=== PATIENT | male | born 1955 | race Caucasian/White ===

== ENCOUNTER → 2020-05-21 08:18 | Outpatient (BNVA) | payer MEDICARE, OTHER, SELFPAY | PROVIDERS: Family Provider Family Medicine; Referring Provider Specialist; Visit Provider Specialist | DX: M25.511 Pain in right shoulder (principal); M19.011 Primary osteoarthritis, right shoulder | CPT/HCPCS: 73030 ==

== ENCOUNTER 2020-06-01 16:20 | Outpatient (CLI) | payer MEDICARE, OTHER, SELFPAY ==
--- NOTE | 2020-06-01 16:45 | MR_ITS ---
WS: [id number] MRI RIGHT SHOULDER HISTORY: M25.511 Pain in right shoulder COMPARISON: 05/21/2020 TECHNIQUE: Multiplanar sequences of the shoulder joint are submitted. Marked soft tissue and bony hypertrophy of the AC joint. There is capsular thickening and fluid along the AC ligament. Significant soft tissue and osseous encroachment upon the supraspinatus muscle and tendon. Fluid in the subacromial and subdeltoid bursa. No os acromion. There is a large insertion site tear with of at least 2.1 cm involving the supraspinatus and infraspi natus tendons. Fluid extends along the infraspinatus tendon and there is marked fraying along the art icular and bursal surfaces. There is an additional high-grade tear involving the articular and bursal surfaces of the infraspinatus tendon 1.8 cm proximal to its insertion site. Tendinopathy and thinnin g of the distal supraspinatus tendon appears slightly retracted by approximately 2 to 3 cm. There is fluid within the tendon sheath of the subscapularis. The tendon does not appear significantly torn or retracted. Mild atrophy of the supraspinatus muscle without edema. There is also mild atrophy of the infraspinatus muscle without edema. Biceps tendon is abnormal. There is a large amount of fluid in the extracapsular portion of the bicep s tendon. At the bicipital groove the biceps tendon is smaller caliber and suspect probably a split t ear due to the changing caliber and the increased signal. Coracohumeral interval is normal. There is an abnormal contour of the glenoid and the posterior labrum. Avulsion of the posterior labrum with sl ight rounding of the glenoid contour. There may be avulsion fracture from the glenoid due to the rou nded contour. The entire labrum contains increased signal and is abnormal. Mild narrowing of the glenohumeral joint with loss of cartilage. Humeral head osteophytes. MR/MR shoulder RT wo con* [id number] IMPRESSION: 1. Large insertion site tear involving the supraspinatus and infraspinatus ten dons with marked fraying along the bursal and articular surfaces. Additional ne ar complete tear in the more proximal infraspinatus tendon. Mild atrophy withou t edema infraspinatus and supraspinatus muscles. 2. Abnormal labrum. Posterior labrum is avulsed with an abnormal contour of th e glenoid. Suggest remote injury with avulsion of the labrum and osseous avulsi on. 3. 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 4. Abnormal biceps tendon. Suspect split tear with biceps tenosynovitis. 5. Advanced degenerative changes at the humeral head and glenohumeral joints f rom osteoarthritis and loss of cartilage. 6. Large amount of fluid along the subscapularis tendon sheath. Subscapularis tendinopathy but no definite tear identified. Suspect there may be a tear dista lly near the biceps tendon insertion.
== END 2020-06-01 16:21 | disposition home or self-care (01) ==
LOC: RADSHAW 16:25
PROVIDERS: PCP Family Medicine; Visit Provider Specialist
DX: M25.511 Pain in right shoulder (principal); M13.811 Other specified arthritis, right shoulder
CPT/HCPCS: 73221

== ENCOUNTER 2020-09-21 06:00 | Outpatient (RCR) | payer MEDICARE, OTHER, SELFPAY | END 2020-10-01 23:59 | disposition home or self-care (01) | LOC: SPT 06:00 | PROVIDERS: PCP Family Medicine; Referring Provider Physician Assistant; Visit Provider Physician Assistant | DX: Z47.89 Encounter for other orthopedic aftercare (principal) | CPT/HCPCS: 97110; 97140; 97161 ==

== ENCOUNTER 2020-10-02 06:00 | Outpatient (RCR) | payer MEDICARE, OTHER, SELFPAY | END 2020-11-01 23:59 | disposition home or self-care (01) | LOC: SPT 06:00 | PROVIDERS: PCP Family Medicine; Referring Provider Physician Assistant; Visit Provider Physician Assistant | DX: Z47.89 Encounter for other orthopedic aftercare (principal) | CPT/HCPCS: 97110; 97140; G0283 ==

== ENCOUNTER 2020-11-02 06:00 | Outpatient (RCR) | payer MEDICARE, OTHER, SELFPAY | END 2020-11-29 23:59 | disposition home or self-care (01) | LOC: SPT 06:00 | PROVIDERS: PCP Family Medicine; Referring Provider Physician Assistant; Visit Provider Physician Assistant | DX: Z47.89 Encounter for other orthopedic aftercare (principal) | CPT/HCPCS: 97110 ==

== ENCOUNTER 2020-11-30 06:00 | Outpatient (RCR) | payer MEDICARE, OTHER, SELFPAY | END 2020-12-30 23:59 | disposition home or self-care (01) | LOC: SPT 06:00 | PROVIDERS: PCP Family Medicine; Referring Provider Physician Assistant; Visit Provider Physician Assistant | DX: Z47.89 Encounter for other orthopedic aftercare (principal) | CPT/HCPCS: 97110 ==

== ENCOUNTER 2020-12-31 06:00 | Outpatient (RCR) | payer MEDICARE, OTHER, SELFPAY | END 2021-01-29 23:59 | disposition home or self-care (01) | LOC: SPT 06:00 | PROVIDERS: PCP Family Medicine; Referring Provider Physician Assistant; Visit Provider Physician Assistant | DX: Z98.890 Other specified postprocedural states (principal) | CPT/HCPCS: 97110 ==

== ENCOUNTER → 2022-07-19 08:01 | Outpatient (BNVA) | payer MEDICARE, SELFPAY | PROVIDERS: PCP Family Medicine; Visit Provider Family Medicine | DX: Z00.00 Encounter for general adult medical examination without abnormal findings (principal); Z13.6 Encounter for screening for cardiovascular disorders; N52.9 Male erectile dysfunction, unspecified | CPT/HCPCS: 80053; 80061 ==

== ENCOUNTER → 2023-07-20 08:26 | Outpatient (BNVA) | payer MEDICARE, SELFPAY | PROVIDERS: PCP Family Medicine; Visit Provider Family Medicine | DX: Z00.00 Encounter for general adult medical examination without abnormal findings (principal); Z13.6 Encounter for screening for cardiovascular disorders | CPT/HCPCS: 80053; 80061 ==

== ENCOUNTER → 2024-07-22 08:22 | Outpatient (BNVA) | payer MEDICARE, SELFPAY | PROVIDERS: PCP Family Medicine; Visit Provider Family Medicine | DX: Z12.5 Encounter for screening for malignant neoplasm of prostate (principal); Z00.00 Encounter for general adult medical examination without abnormal findings; Z13.6 Encounter for screening for cardiovascular disorders | CPT/HCPCS: 80053; 80061; G0103 ==

== ENCOUNTER → 2024-12-02 09:20 | Outpatient (BNVA) | payer MEDICARE, SELFPAY | PROVIDERS: PCP Family Medicine; Visit Provider Nurse Practitioner | DX: M25.562 Pain in left knee (principal); M17.12 Unilateral primary osteoarthritis, left knee; M70.42 Prepatellar bursitis, left knee | CPT/HCPCS: 73560; 73565 ==

== ENCOUNTER 2024-12-02 11:42 | Outpatient (CLI) | payer MEDICARE, SELFPAY | END 2024-12-02 11:43 | disposition home or self-care (01) | LOC: SPT 11:43 | PROVIDERS: PCP Family Medicine; Visit Provider Nurse Practitioner | DX: Z46.89 Encounter for fitting and adjustment of other specified devices (principal); M25.562 Pain in left knee | CPT/HCPCS: 97760; L1812 ==

== ENCOUNTER → 2024-12-11 11:03 | Outpatient (BNVA) | payer MEDICARE, SELFPAY | PROVIDERS: PCP Family Medicine; Visit Provider Nurse Practitioner | DX: M70.42 Prepatellar bursitis, left knee (principal); M17.12 Unilateral primary osteoarthritis, left knee | CPT/HCPCS: 99213 ==

== ENCOUNTER → 2025-03-17 08:16 | Outpatient (BNVA) | payer MEDICARE, SELFPAY | PROVIDERS: PCP Family Medicine; Visit Provider Nurse Practitioner | DX: M70.42 Prepatellar bursitis, left knee (principal); M17.12 Unilateral primary osteoarthritis, left knee | CPT/HCPCS: 99213 ==

== ENCOUNTER → 2025-07-28 08:27 | Outpatient (BNVA) | payer MEDICARE, SELFPAY | PROVIDERS: PCP Family Medicine; Visit Provider Family Medicine | DX: Z00.00 Encounter for general adult medical examination without abnormal findings (principal) | CPT/HCPCS: 80053; 80061 ==